=== PATIENT | female | born 1990 | race Caucasian/White ===

== ENCOUNTER 2018-06-16 12:11 | Emergency (ER) | payer OTHER ==
[~2018-06-16] VITALS: Ht 160 cm; Wt 60.1 kg
[2018-06-16 12:57] VITALS: BP 115/65
[2018-06-16 13:55] LABS: URINE HCG NEGATIVE (NEG)
[2018-06-16 13:56] LABS: CLARITY,URINE CLEAR (Clear); COLOR,URINE STRAW (Yellow); GLUCOSE, URINE NEGATIVE (Neg); KETONES,URINE NEGATIVE (Neg); LEUKOCYTE ESTERASE ,URINE NEGATIVE (Neg); NITRITES, URINE NEGATIVE (Neg); OCCULT BLOOD,URINE NEGATIVE (Neg); PH,URINE 5.5 (4.8-8.0); PROTEIN,URINE NEGATIVE (Neg); UROBILINOGEN,URINE 0.2 E.U/dL (0.2-1.0)
[2018-06-16 14:10] LABS: UA COLLECTION TYPE CLN CATCH MIDSTREAM
[2018-06-16] MEDS ORDERED: CefTRIAXone 250MG IM Kit w/LIDOcaine IM ONE (15:10)
[2018-06-16] MEDS ORDERED: azithromycin 250mg tablet PO ONE (15:10)
== END 2018-06-16 15:45 | disposition home or self-care (01) ==
LOC: ER 12:12
DX: N72 Inflammatory disease of cervix uteri (principal)
CPT/HCPCS: 36415; 81003; 81025; 87210; 87491; 87591; 96372; 99283; J0696